=== PATIENT | male | born 1950 | race Caucasian/White ===

== ENCOUNTER 2021-08-28 16:56 | Inpatient (IN) ==
[2021-08-28] MEDS ORDERED: IOPAMIDOL 100 ML BOTTLE IV ONE (16:57)
[2021-08-28] MEDS ORDERED: 0.9 % SODIUM CHLORIDE 1,000 ML IV ONE (17:30)
[2021-08-28 17:42] LABS: POC Calcium, Ionized 1.12 (1.16-1.32); POC Creatinine 0.8 (0.6-1.2); POC Potassium 3.8 (3.3-5.1)
[2021-08-28 18:02] LABS: Basophils # (Auto) 0.03 K/mcL (0.00-0.30); Basophils % (Auto) 0.3 % (0.0-2.0); Eosinophils # (Auto) 0.17 K/mcL (0.00-0.70); Eosinophils % (Auto) 1.6 % (0.0-7.0); Hematocrit 42.7 % (40.1-51.0); Hemoglobin 14.6 g/dL (13.7-17.5); Lymphocytes # (Auto) 1.17 K/mcL (1.50-4.80); Lymphocytes % (Auto) 11.2 % (15.5-49.0); Mean Cell Volume 90.3 fL (80.0-100.0); Mean Corpuscular HGB Conc 34.2 g/dL (31.0-36.0); Mean Platelet Volume 10.2 fL (7.4-10.4); Monocytes # (Auto) 1.06 K/mcL (0.10-0.90); Monocytes % (Auto) 10.2 % (1.0-12.0); Neutrophils % (Auto) 75.9 % (38.0-78.0); Platelet Count 225 K/mcL (140-440); RBC 4.73 M/mcL (4.63-6.08); Red Cell Distribution Width 13.2 % (11.5-14.5); WBC 10.4 K/mcL (4.5-11.0)
--- NOTE | 2021-08-28 18:04 | XRay Report ---
CLINICAL INFORMATION: Shortness of breath COMPARISON: None. TECHNIQUE: PA and Lateral views FINDINGS: The heart is mildly enlarged. Mediastinum and pulmonary vessels are normal. There is minor left basilar atelectasis noted. No effusions. Bones soft tissues normal. IMPRESSION: Mild cardiomegaly. Interpreted and Authenticated by: Dieter Chapman 08/28/21
--- NOTE | 2021-08-28 18:14 | Emergency Department Note ---
SOB HPI General Chief Complaint: Shortness of Breath/Dyspnea Stated Complaint: SOB Time Seen by Provider: 08/28/21 17:14 Source: patient Mode of arrival: wheelchair Limitations: no limitations History of Present Illness HPI Narrative: Narrative: Patient presents ED with complaints of worsening shortness of breath over the last 3 days. He states that he feels like he is not breathing properly. He went to [facility] and tested positive for COVID. While he was there he states that his oxygen saturations were in the low 80s but he was sent home. Patient dates when he got home his that he did not look good so they brought him here to the ED. Upon arrival patient was satting 86% on room air. Patient states that he has associated chills, body aches, diarrhea. He denies cardiac chest pain, heart palpitations, cough, sputum production, hemoptysis, melena, medic easier, dysuria, hematuria, urinary frequency, abdominal pain. Patient states that he does have sleep apnea. He has a history of hypertension and diabetes. Patient denies any other alleviating or aggravating factors. Related Data Home Medications Medication Instructions Recorded Confirmed ascorbic acid (vitamin C) 500 mg 500 mg PO QDAY 02/05/21 08/28/21 tablet aspirin 81 mg capsule 81 mg PO QDAY 02/05/21 08/28/21 [id number] 250 3 tab PO Q6H PRN Pain 02/05/21 08/28/21 mg-250 mg-65 mg tablet (Excedrin Extra Strength) cholecalciferol (vitamin D3) 125 125 mcg PO QDAY 02/05/21 08/28/21 mcg (5,000 unit) tablet (Vitamin D3) multivitamin 1 tab PO QDAY 02/05/21 08/28/21 potassium chloride 20 mEq 40 meq PO QAM HTN 02/05/21 08/28/21 tablet,extended release(part/cryst) (Klor-Con M) psyllium husk 3.4 gram/5.4 gram 1 tbsp PO QDAY 02/05/21 08/28/21 oral powder (Metamucil) Previous Rx's Medication Instructions Recorded blood-glucose meter (Glucocard #1 ea 01/25/19 Vital) Diabetic shoes and inserts #1 ea 02/24/19 metformin 500 mg tablet 1,000 mg PO BID diabetes #360 tabs 12/27/19 blood sugar diagnostic (Glucocard See Rx Instructions .Route 02/05/20 Expression) .COMPLEX #100 strips furosemide 80 mg tablet (Lasix) 40 mg PO QDAY HTN #90 tabs 10/16/20 simvastatin 40 mg tablet 40 mg PO QHS #90 tabs 10/16/20 allopurinol 300 mg tablet 300 mg PO QDAY GOUT #90 tabs 02/26/21 pioglitazone 15 mg tablet 15 mg PO QDAY #90 tabs 02/26/21 glipizide 10 mg tablet, extended 10 mg PO QDAY #90 tabs 04/25/21 release 24 hr tamsulosin 0.4 mg capsule 0.4 mg PO QPM #90 caps 05/05/21 carvedilol 12.5 mg tablet 12.5 mg PO BID #60 tabs 06/03/21 zolpidem 10 mg tablet (Ambien) 10 mg PO QHS PRN insomnia #30 tabs 06/19/21 liothyronine 25 mcg tablet 25 mcg PO .COMPLEX thyroid #90 06/23/21 tabs amlodipine 10 mg tablet 10 mg PO QDAY #90 tabs 07/24/21 gabapentin 300 mg capsule 1,200 mg PO BID #270 caps 07/24/21 amitriptyline 50 mg tablet 150 mg PO QHS #270 tabs 07/29/21 acetaminophen 300 mg-codeine 30 mg 1 tab PO Q6H #60 tabs 08/20/21 tablet levothyroxine 100 mcg tablet 100 mcg PO .COMPLEX #180 tabs 08/20/21 (Levoxyl) meloxicam 7.5 mg tablet 7.5 mg PO QDAY #90 tabs 08/20/21 olmesartan 40 mg tablet 40 mg PO QAM #90 tabs 08/20/21 albuterol sulfate 90 mcg/actuation 2 puff inhalation Q6H PRN 08/28/21 aerosol inhaler shortness of breath or wheezing #8.5 grams mouthwash See Rx Instructions .Route 08/28/21 .COMPLEX #240 mL nirmatrelvir 300 mg (150 mg x See Rx Instructions PO .COMPLEX 08/28/21 2)-ritonavir 100 mg tablet (EUA) #30 tabs (Paxlovid 300 mg () Allergies Allergy/AdvReac Type Severity Reaction Status Date / Time Penicillins [PENICILLINS] Allergy Mild Rash Verified 08/28/21 17:03 morphine [MORPHINE] AdvReac Mild Nausea/Vomi Verified 08/28/21 17:03 ting Review of Systems ROS ROS Narrative: Narrative: All systems ED: reviewed and negative except as stated. 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) Stage III chronic kidney disease (Chronic) Hyperglycemia due to type 2 diabetes mellitus (Chronic) Nocturia (Chronic) Hypothyroidism (Chronic) Lumbar back pain (Chronic) Depression (Chronic) Shoulder pain, right (Chronic) Obesity (Chronic) Chronic constipation (Chronic) External hemorrhoids (Chronic) Chest pain (Chronic) Pain in left hip (Chronic) Seasonal allergic rhinitis (Chronic) Visual changes (Chronic) Weight loss (Chronic) Wrist pain, right (Chronic) Knee pain (Chronic) Fatigue (Chronic) Rib pain (Chronic) Pedal edema (Chronic) Popliteal cyst (Chronic) Degenerative joint disease (Chronic) Muscle spasm (Chronic) Tension headache (Chronic) Stress (Chronic) Fluid retention (Chronic) Mixed hyperlipidemia (Acute) Encounter for medication monitoring (Acute) Hypertension, essential (Acute) Orthostatic hypotension (Acute) Sinusitis (Acute) Memory loss (Acute) Pain in left hip (Acute) Left shoulder pain (Acute) DJD of left shoulder (Chronic) Swelling of right foot (Acute) Skin lesion (Acute) Vertigo (Acute) Medical History Chest pain Chronic constipation Degenerative joint disease Depression Diabetic peripheral neuropathy DJD of left shoulder External hemorrhoids Fatigue Fluid retention Foot callus Hyperglycemia due to type 2 diabetes mellitus Hypothyroidism Knee pain Lumbar back pain Muscle spasm Nocturia Obesity Obstructive sleep apnea Pain in left hip Pain in left hip Pedal edema Popliteal cyst Rib pain Seasonal allergic rhinitis Shoulder pain, right Stage III chronic kidney disease Stress Sudden left hearing loss Tension headache Type 2 diabetes mellitus with chronic kidney disease Visual changes Weight loss Wrist pain, right Surgical History History of cardiac radiofrequency ablation (~2016) Radiofrequency Rhizotomy History of excision of lesion (~1993) Skin cancer on lower lip, removed. History of total right knee replacement (~2010) Family History Other No pertinent family history Social History Smoking Status: Never smoker Alcohol Intake Frequency: does not drink Substance Use: does not use Exam Narrative Narrative: Narrative: General Limitations: no limitations General appearance: Present alert ENT ENT: Present normal oropharynx and mucous membranes moist Chest Chest: Present normal inspection; Absent tenderness Respiratory Respiratory: Present respiratory distress, accessory muscle use and other (Hypoxia) Cardiovascular Cardiovascular: Present normal rhythm and tachycardia Adbominal Abdominal: Present soft; Absent tenderness Neurological Neurological: Present alert and oriented X3 Psychiatric Psychiatric: Present normal affect and normal mood Skin Skin: Present warm (WNL), intact and normal color Course Course Course Narrative: Patient was evaluated for shortness of breath. Patient tested positive for COVID-19. EKG was unremarkable. Chest x-ray obtained with image reviewed myself with no acute findings. Labs are unremarkable with a normal white cell count. Lactic acid was unremarkable. Renal function was intact. D-dimer was elevated so a CT of the chest obtained with image reviewed myself which is negative for PE but does show bilateral lower lobe infiltrates consistent with COVID-pneumonia. Patient required 2 L of oxygen via mask to maintain adequate oxygen saturation. He was on a mask because he is a mouth breather and did not take good breaths through his nose. Case was discussed with hospitalist who has agreed to admit the patient. Reevaluation(s) Reevaluation #1: Patient remains hemodynamically stable. No new complaints at this time Time: 18:01 Consultations Consultation #1: Case discussed with hospitalist, Dr. Beasley, who has agreed to admit the patient for acute respiratory failure secondary to COVID-pneumonia Time: 20:15 Vital Signs Vital signs: Vital Signs Temperature 98.3 F 08/28/21 17:01 Pulse Rate 108 H 08/28/21 17:01 Respiratory Rate 25 H 08/28/21 17:01 Blood Pressure 163/81 08/28/21 17:01 Pulse Oximetry (%) 86 L 08/28/21 17:01 Oxygen Delivery Method 08/28/21 17:01 Temperature 98.3 F 08/28/21 17:01 Pulse Rate 111 H 08/28/21 18:43 Respiratory Rate 25 H 08/28/21 17:01 Blood Pressure 140/86 08/28/21 18:46 Pulse Oximetry (%) 95 08/28/21 18:43 Oxygen Delivery Method 08/28/21 17:01 Oxygen Flow Rate (L/min) 2 08/28/21 17:48 MDM MDM Narrative Medical decision making narrative: Narrative: Differential Diagnosis Differential Diagnosis: Respiratory failure, COVID-19 infection Lab Data Result diagrams: 08/28/21 17:30 08/28/21 17:30 Labs: Lab Results 08/28/21 08/28/21 08/28/21 Range/Units 17:30 17:30 17:30 WBC 10.4 (4.5-11.0) K/mcL RBC 4.73 (4.63-6.08) M/mcL Hgb 14.6 (13.7-17.5) g/dL Hct 42.7 (40.1-51.0) % POC Hct (41-55) MCV 90.3 (80.0-100.0) fL MCH 30.9 (26.0-34.0) pg MCHC 34.2 (31.0-36.0) g/dL RDW 13.2 (11.5-14.5) % Plt Count 225 (140-440) K/mcL MPV 10.2 (7.4-10.4) fL Immature Gran % (Auto) 0.8 H (0.0-0.5) % Neut % (Auto) 75.9 (38.0-78.0) % Lymph % (Auto) 11.2 L (15.5-49.0) % [place] % (Auto) 10.2 (1.0-12.0) % Eos % (Auto) 1.6 (0.0-7.0) % Baso % (Auto) 0.3 (0.0-2.0) % Lymph # (Auto) 1.17 L (1.50-4.80) K/mcL [place] # (Auto) 1.06 H (0.10-0.90) K/mcL Eos # (Auto) 0.17 (0.00-0.70) K/mcL Baso # (Auto) 0.03 (0.00-0.30) K/mcL Immature Gran # 0.08 H (0.00-0.05) K/mcl Absolute Neutrophils 8.00 (1.80-8.00) K/mcL D-Dimer 0.55 H (0.27-0.50) ug/mL POC VBG pH (7.32-7.42) POC VBG pCO2 at Temp (41-51) POC VBG pO2 (25-40) POC VBG HCO3 (24-28) POC VBG Total CO2 (25-29) POC Venous O2 Sat (40-70) POC VBG Base Excess (-2-2) VBG Lactic Acid (0.5-2) POC Sodium (133-145) Sodium 136 (133-145) mmol/L POC Potassium (3.3-5.1) Potassium 3.8 (3.3-5.1) mmol/L POC Chloride (96-108) Chloride 99 (96-108) mmol/L Carbon Dioxide 26 (22-30) mmol/L POC Total CO2 (22-30) Anion Gap 11.0 (8.0-16.0) POC BUN (6-20) BUN 9 (8-23) mg/dL Creatinine 0.8 (0.7-1.2) mg/dL POC Creatinine (0.6-1.2) GFR Calculation 91 Glucose 105 (70-105) mg/dL POC Glucose (70-105) Calcium 9.1 (8.6-10.4) mg/dL POC WB Ioniz Calcium (1.16-1.32) Total Bilirubin 0.4 (0.1-1.0) mg/dL AST 14 (<40) U/L ALT 13 (<40) U/L Alkaline Phosphatase 163 H (39-117) U/L Total Protein 7.4 (5.9-8.4) gm/dL Albumin 4.0 (3.2-5.2) gm/dL Globulin 3.4 (2.2-3.7) gm/dL Albumin/Globulin Ratio 1.2 (1.0-2.3) 08/28/21 08/28/21 Range/Units 17:39 18:50 WBC (4.5-11.0) K/mcL RBC (4.63-6.08) M/mcL Hgb (13.7-17.5) g/dL Hct (40.1-51.0) % POC Hct 46.0 (41-55) MCV (80.0-100.0) fL MCH (26.0-34.0) pg MCHC (31.0-36.0) g/dL RDW (11.5-14.5) % Plt Count (140-440) K/mcL MPV (7.4-10.4) fL Immature Gran % (Auto) (0.0-0.5) % Neut % (Auto) (38.0-78.0) % Lymph % (Auto) (15.5-49.0) % [place] % (Auto) (1.0-12.0) % Eos % (Auto) (0.0-7.0) % Baso % (Auto) (0.0-2.0) % Lymph # (Auto) (1.50-4.80) K/mcL [place] # (Auto) (0.10-0.90) K/mcL Eos # (Auto) (0.00-0.70) K/mcL Baso # (Auto) (0.00-0.30) K/mcL Immature Gran # (0.00-0.05) K/mcl Absolute Neutrophils (1.80-8.00) K/mcL D-Dimer (0.27-0.50) ug/mL POC VBG pH 7.45 H (7.32-7.42) POC VBG pCO2 at Temp 40.2 L (41-51) POC VBG pO2 27 (25-40) POC VBG HCO3 27.9 (24-28) POC VBG Total CO2 29.0 (25-29) POC Venous O2 Sat 52.0 (40-70) POC VBG Base Excess 4.0 H* (-2-2) VBG Lactic Acid 1.6 (0.5-2) POC Sodium 139 (133-145) Sodium (133-145) mmol/L POC Potassium 3.8 (3.3-5.1) Potassium (3.3-5.1) mmol/L POC Chloride 100 (96-108) Chloride (96-108) mmol/L Carbon Dioxide (22-30) mmol/L POC Total CO2 27.0 (22-30) Anion Gap (8.0-16.0) POC BUN 10 (6-20) BUN (8-23) mg/dL Creatinine (0.7-1.2) mg/dL POC Creatinine 0.8 (0.6-1.2) GFR Calculation Glucose (70-105) mg/dL POC Glucose 108 H (70-105) Calcium (8.6-10.4) mg/dL POC WB Ioniz Calcium 1.12 L (1.16-1.32) Total Bilirubin (0.1-1.0) mg/dL AST (<40) U/L ALT (<40) U/L Alkaline Phosphatase (39-117) U/L Total Protein (5.9-8.4) gm/dL Albumin (3.2-5.2) gm/dL Globulin (2.2-3.7) gm/dL Albumin/Globulin Ratio (1.0-2.3) ED POC Tests ED POC Tests: PHILIP - Influenza A Negative PHILIP - Influenza B Negative PHILIP - SARS Antigen Positive Radiology Data Radiology results reviewed: Yes I reviewed the patient's radiology results. Radiology results narrative: Chest x-ray obtained with image reviewed myself, agree with radiologist interpretation CT of the chest obtained in July is reviewed myself is negative for PE but does show bilateral lower lobe infiltrates EKG Data EKG #1: EKG attestation: Yes I reviewed and interpreted this EKG. EKG shows normal: sinus rhythm Rate: tachycardia (111) Rhythm: NSR [place]/QRS: normal Heart block present: None ST segment elevation in: None ST segment depression in: None QTc: normal QRS morphology: Present normal Interpretation: no acute changes Core Measures AMI Core Measures Followed: Yes Discharge Plan Patient/Caregiver Discharge Instructions Pt seen by ORAL SURGERY PHYSICIAN/PA only: No Clinical Impression: Acute respiratory failure with hypoxia, Elevated d-dimer, Pneumonia due to 2019-nCoV Patient Disposition: Xfer As Inpt ([facility]) Condition: Fair Follow up with: Jane Benavidez ARNP [Primary Care Provider] - Prescriptions: No Action (DME) blood-glucose meter [Glucocard Vital] Kit See Rx Instructions .ROUTE .MEDSUPPLY Qty: 1 0RF Rx Instructions: TESTING bid metformin 500 mg tablet 1,000 mg PO BID Qty: 360 4RF Rx Instructions: increase to 4pills/day (DME) Diabetic shoes and inserts Qty: 1 0RF Rx Instructions: As directed blood sugar diagnostic [Glucocard Expression] Strip See Rx Instructions .ROUTE .COMPLEX Qty: 100 11RF Dose Instruction: USE TO test BLOOD SUGAR(S) TWICE DAILY Rx Instructions: USE TO test BLOOD SUGAR(S) TWICE DAILY glipizide 10 mg tablet extended release 24hr 10 mg PO QDAY Qty: 90 3RF tamsulosin 0.4 mg capsule 0.4 mg PO QPM Qty: 90 4RF zolpidem [Ambien] 10 mg tablet 10 mg PO QHS PRN (Reason: insomnia) Qty: 30 3RF Rx Instructions: pickup liothyronine 25 mcg tablet 25 mcg PO .COMPLEX Qty: 90 6RF Rx Instructions: 25 mcg PO 1/2 M, W & , take 1 daily the other days of the week ; amlodipine 10 mg tablet 10 mg PO QDAY Qty: 90 3RF gabapentin 300 mg capsule 1,200 mg PO BID Qty: 270 6RF amitriptyline 50 mg tablet 50 mg tablet 150 mg PO QHS Qty: 270 2RF Rx Instructions: increased dose 01/11/19/ mouthwash See Rx Instructions .ROUTE .COMPLEX Qty: 240 0RF Rx Instructions: Mix 30mg Lidocaine, 60mg Benadryl, and 60mg Mylanta Swish 4 times daily and then swallow; albuterol sulfate 90 mcg/actuation HFA aerosol inhaler 2 puff inhalation Q6H PRN (Reason: shortness of breath or wheezing) Qty: 8.5 0RF Paxlovid (EUA) 300 mg (150 mg x 2)-100 mg tablet See Rx Instructions PO .COMPLEX Qty: 30 0RF Rx Instructions: take TWO 150 mg tablets of nirmatrelvir with ONE 100 mg tablet of ritonavir twice daily for 5 days do not take simvastatin and tamsulosin furosemide [Lasix] 80 mg tablet 40 mg PO QDAY Qty: 90 5RF simvastatin 40 mg tablet 40 mg PO QHS Qty: 90 3RF allopurinol 300 mg tablet 300 mg PO QDAY Qty: 90 4RF pioglitazone 15 mg tablet 15 mg PO QDAY Qty: 90 2RF levothyroxine [Levoxyl] 100 mcg tablet 100 mcg PO .COMPLEX Qty: 180 4RF Rx Instructions: 100 mcg PO 1 on M, W, F, Sun, 2 pills daily on wednesday and meloxicam 7.5 mg tablet 7.5 mg PO QDAY Qty: 90 0RF olmesartan 40 mg tablet 40 mg PO QAM Qty: 90 4RF acetaminophen-codeine 300-30 mg tablet 1 tab PO Q6H Qty: 60 2RF Rx Instructions: last 30 days carvedilol 12.5 mg tablet 12.5 mg PO BID Qty: 60 3RF Rx Instructions: must administer with a meal/food multivitamin Tablet 1 tab PO QDAY ascorbic acid (vitamin C) 500 mg Tablet 500 mg PO QDAY Excedrin Extra Strength 250-250-65 mg Tablet 3 tab PO Q6H PRN (Reason: Pain) cholecalciferol (vitamin D3) [Vitamin D3] 125 mcg (5,000 unit) Tablet 125 mcg PO QDAY Metamucil 3.4 gram/5.4 gram Powder 1 tbsp PO QDAY Rx Instructions: mix into at least 8 oz of water or juice before administering aspirin 81 mg Capsule 81 mg PO QDAY potassium chloride [Klor-Con M20] 20 mEq tablet,ER particles/crystals 40 meq PO QAM
[2021-08-28 18:29] LABS: ALT/SGPT 13 U/L (<40); AST/SGOT 14 U/L (<40); Albumin/Globulin Ratio 1.2 (1.0-2.3); Alkaline Phosphatase 163 U/L (39-117); Bilirubin,Total 0.4 mg/dL (0.1-1.0); Blood Urea Nitrogen 9 mg/dL (8-23); Calcium 9.1 mg/dL (8.6-10.4); Carbon Dioxide 26 mmol/L (22-30); Chloride 99 mmol/L (96-108); Globulin 3.4 gm/dL (2.2-3.7); Glomerular Filtration Rate 91; Glucose 105 mg/dL (70-105)
[2021-08-28] MEDS ORDERED: KETOROLAC 30 MG/ML VIAL IV ONE (20:06)
[2021-08-28] MEDS ORDERED: ACETAMINOPHEN 325 MG TABLET PO ONE (20:06)
[2021-08-28] MEDS ORDERED: DEXAMETHASONE 10 MG/ML VIAL IV ONE ×3 (20:29→20:51)
--- NOTE | 2021-08-28 20:29 | Internal Med History&Physical ---
HPI History of Present Illness Patient information: Note initiated : 08/28/21 at 8:25 pm Service Date, if different from initiated Date: [] Patient: Paul Dawson 71 y/o M admitted on for Shortness of breath. Chief Complaint: [] History of present illness: Mr. Dawson is a 71 year old M Patient presents the ED with increasing shortness of breath and cough. Patient developed sore throat on Wednesday while he was in [place]. He came back and had increasing shortness of breath and dry cough. This morning it became worse and so he went to [facility] and got a COVID test that was positive and he was given a prescription for Paxil of it. Patient states his oxygen saturations were low, in the 80s and when he got home his said he did not look good so he went back to the ED. In the ER is 86% on room air. Patient complained of chills body aches and diarrhea and headaches. No chest pain. Patient is vaccinated against COVID as well as the booster. Influenza screen AMB were negative in the ED. CTA of the chest showing bilateral lower lobe infiltrates. Review of Systems: Positives as above. Denies fever/nausea/vomiting/chest or abdominal pain. 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) Stage III chronic kidney disease (Chronic) Hyperglycemia due to type 2 diabetes mellitus (Chronic) Nocturia (Chronic) Hypothyroidism (Chronic) Lumbar back pain (Chronic) Depression (Chronic) Shoulder pain, right (Chronic) Obesity (Chronic) Chronic constipation (Chronic) External hemorrhoids (Chronic) Chest pain (Chronic) Pain in left hip (Chronic) Seasonal allergic rhinitis (Chronic) Visual changes (Chronic) Weight loss (Chronic) Wrist pain, right (Chronic) Knee pain (Chronic) Fatigue (Chronic) Rib pain (Chronic) Pedal edema (Chronic) Popliteal cyst (Chronic) Degenerative joint disease (Chronic) Muscle spasm (Chronic) Tension headache (Chronic) Stress (Chronic) Fluid retention (Chronic) Mixed hyperlipidemia (Acute) Encounter for medication monitoring (Acute) Hypertension, essential (Acute) Orthostatic hypotension (Acute) Sinusitis (Acute) Memory loss (Acute) Pain in left hip (Acute) Left shoulder pain (Acute) DJD of left shoulder (Chronic) Swelling of right foot (Acute) Skin lesion (Acute) Vertigo (Acute) Medical History Chest pain Chronic constipation Degenerative joint disease Depression Diabetic peripheral neuropathy DJD of left shoulder External hemorrhoids Fatigue Fluid retention Foot callus Hyperglycemia due to type 2 diabetes mellitus Hypothyroidism Knee pain Lumbar back pain Muscle spasm Nocturia Obesity Obstructive sleep apnea Pain in left hip Pain in left hip Pedal edema Popliteal cyst Rib pain Seasonal allergic rhinitis Shoulder pain, right Stage III chronic kidney disease Stress Sudden left hearing loss Tension headache Type 2 diabetes mellitus with chronic kidney disease Visual changes Weight loss Wrist pain, right Surgical History History of cardiac radiofrequency ablation (~2016) Radiofrequency Rhizotomy History of excision of lesion (~1993) Skin cancer on lower lip, removed. History of total right knee replacement (~2010) Family History Other No pertinent family history Social History marital status: occupational status: disabled alcohol intake frequency: does not drink substance use type: does not use MEDS/ALLERGIES Home Medications and Allergies Home Medications Medication Instructions Recorded Confirmed Type blood-glucose meter (Glucocard #1 ea 01/25/19 08/28/21 Rx Vital) Diabetic shoes and inserts #1 ea 02/24/19 08/28/21 Rx metformin 500 mg tablet 1,000 mg PO BID diabetes #360 tabs 12/27/19 08/28/21 Rx blood sugar diagnostic (Glucocard See Rx Instructions .Route 02/05/20 08/28/21 Rx Expression) .COMPLEX #100 strips furosemide 80 mg tablet (Lasix) 40 mg PO QDAY HTN #90 tabs 10/16/20 08/28/21 Rx simvastatin 40 mg tablet 40 mg PO QHS #90 tabs 10/16/20 08/28/21 Rx ascorbic acid (vitamin C) 500 mg 500 mg PO QDAY 02/05/21 08/28/21 History tablet aspirin 81 mg capsule 81 mg PO QDAY 02/05/21 08/28/21 History wpdfwsx-laeyaivihyajv-bqesgmod 250 3 tab PO Q6H PRN Pain 02/05/21 08/28/21 History mg-250 mg-65 mg tablet (Excedrin Extra Strength) cholecalciferol (vitamin D3) 125 125 mcg PO QDAY 02/05/21 08/28/21 History mcg (5,000 unit) tablet (Vitamin D3) multivitamin 1 tab PO QDAY 02/05/21 08/28/21 History potassium chloride 20 mEq 40 meq PO QAM HTN 02/05/21 08/28/21 History tablet,extended release(part/cryst) (Klor-Con M) psyllium husk 3.4 gram/5.4 gram 1 tbsp PO QDAY 02/05/21 08/28/21 History oral powder (Metamucil) allopurinol 300 mg tablet 300 mg PO QDAY GOUT #90 tabs 02/26/21 08/28/21 Rx pioglitazone 15 mg tablet 15 mg PO QDAY #90 tabs 02/26/21 08/28/21 Rx glipizide 10 mg tablet, extended 10 mg PO QDAY #90 tabs 04/25/21 08/28/21 Rx release 24 hr tamsulosin 0.4 mg capsule 0.4 mg PO QPM #90 caps 05/05/21 08/28/21 Rx carvedilol 12.5 mg tablet 12.5 mg PO BID #60 tabs 06/03/21 08/28/21 Rx zolpidem 10 mg tablet (Ambien) 10 mg PO QHS PRN insomnia #30 tabs 06/19/21 08/28/21 Rx liothyronine 25 mcg tablet 25 mcg PO .COMPLEX thyroid #90 06/23/21 08/28/21 Rx tabs amlodipine 10 mg tablet 10 mg PO QDAY #90 tabs 07/24/21 08/28/21 Rx gabapentin 300 mg capsule 1,200 mg PO BID #270 caps 07/24/21 08/28/21 Rx amitriptyline 50 mg tablet 150 mg PO QHS #270 tabs 07/29/21 08/28/21 Rx acetaminophen 300 mg-codeine 30 mg 1 tab PO Q6H #60 tabs 08/20/21 08/28/21 Rx tablet levothyroxine 100 mcg tablet 100 mcg PO .COMPLEX #180 tabs 08/20/21 08/28/21 Rx (Levoxyl) meloxicam 7.5 mg tablet 7.5 mg PO QDAY #90 tabs 08/20/21 08/28/21 Rx albuterol sulfate 90 mcg/actuation 2 puff inhalation Q6H PRN 08/28/21 08/28/21 Rx aerosol inhaler shortness of breath or wheezing #8.5 grams mouthwash See Rx Instructions .Route 08/28/21 08/28/21 Rx .COMPLEX #240 mL nirmatrelvir 300 mg (150 mg x See Rx Instructions PO .COMPLEX 08/28/21 08/28/21 Rx 2)-ritonavir 100 mg tablet (EUA) #30 tabs (Paxlovid 300 mg () olmesartan 40 mg tablet 80 mg PO QAM 08/28/21 08/28/21 History Allergies Allergy/AdvReac Type Severity Reaction Status Date / Time Penicillins [PENICILLINS] Allergy Mild Rash Verified 08/28/21 17:03 morphine [MORPHINE] AdvReac Mild Nausea/Vomi Verified 08/28/21 17:03 ting EXAM Constitutional Vitals: Temp Pulse Resp BP Pulse Ox O2 Del Method O2 Flow Rate 98.3 F 111 H 25 H 140/86 95 2 08/28/21 17:01 08/28/21 18:43 08/28/21 17:01 08/28/21 18:46 08/28/21 18:43 08/28/21 17:01 08/28/21 17:48 Exam: General: Alert, Awake, No acute Distress, obese Eyes/N/T: EOMI, PERRL, MM Head/Neck: neck supple, normocephalic atraumatic CV: RRR, No murmurs, normal s1/s2 Pulm: Mildly diminished b/l, no wheezing Abd: soft, nontender, +BS x4 Ext: no clubbing/cyanosis/edema Neuro: Alert, no focal deficits, moves all extremities, CN 2-12 grossly intact, symmetrical strength b/l upper/lower, sensations intact b/l upper/lower Skin: warm/dry DATA Data Completed and Pending Labs: Labs from last 24 hours 08/28/21 08/28/21 08/28/21 20:11 20:10 18:50 WBC RBC Hgb Hct POC Hct MCV MCH MCHC RDW Plt Count MPV Immature Gran % (Auto) Neut % (Auto) Lymph % (Auto) Cass % (Auto) Eos % (Auto) Baso % (Auto) Lymph # (Auto) Cass # (Auto) Eos # (Auto) Baso # (Auto) Immature Gran # Absolute Neutrophils D-Dimer POC VBG pH 7.45 H POC VBG pCO2 at Temp 40.2 L POC VBG pO2 27 POC VBG HCO3 27.9 POC VBG Total CO2 29.0 POC Venous O2 Sat 52.0 POC VBG Base Excess 4.0 H* VBG Lactic Acid 1.6 POC Sodium Sodium POC Potassium Potassium POC Chloride Chloride Carbon Dioxide POC Total CO2 Anion Gap POC BUN BUN Creatinine POC Creatinine GFR Calculation Glucose POC Glucose Calcium POC WB Ioniz Calcium Ferritin Pending Total Bilirubin AST ALT Alkaline Phosphatase C-Reactive Protein Pending Total Protein Albumin Globulin Albumin/Globulin Ratio Procalcitonin Pending 08/28/21 08/28/21 08/28/21 17:39 17:30 17:30 WBC 10.4 RBC 4.73 Hgb 14.6 Hct 42.7 POC Hct 46.0 MCV 90.3 MCH 30.9 MCHC 34.2 RDW 13.2 Plt Count 225 MPV 10.2 Immature Gran % (Auto) 0.8 H Neut % (Auto) 75.9 Lymph % (Auto) 11.2 L Cass % (Auto) 10.2 Eos % (Auto) 1.6 Baso % (Auto) 0.3 Lymph # (Auto) 1.17 L Cass # (Auto) 1.06 H Eos # (Auto) 0.17 Baso # (Auto) 0.03 Immature Gran # 0.08 H Absolute Neutrophils 8.00 D-Dimer 0.55 H POC VBG pH POC VBG pCO2 at Temp POC VBG pO2 POC VBG HCO3 POC VBG Total CO2 POC Venous O2 Sat POC VBG Base Excess VBG Lactic Acid POC Sodium 139 Sodium POC Potassium 3.8 Potassium POC Chloride 100 Chloride Carbon Dioxide POC Total CO2 27.0 Anion Gap POC BUN 10 BUN Creatinine POC Creatinine 0.8 GFR Calculation Glucose POC Glucose 108 H Calcium POC WB Ioniz Calcium 1.12 L Ferritin Total Bilirubin AST ALT Alkaline Phosphatase C-Reactive Protein Total Protein Albumin Globulin Albumin/Globulin Ratio Procalcitonin 08/28/21 17:30 WBC RBC Hgb Hct POC Hct MCV MCH MCHC RDW Plt Count MPV Immature Gran % (Auto) Neut % (Auto) Lymph % (Auto) Cass % (Auto) Eos % (Auto) Baso % (Auto) Lymph # (Auto) Cass # (Auto) Eos # (Auto) Baso # (Auto) Immature Gran # Absolute Neutrophils D-Dimer POC VBG pH POC VBG pCO2 at Temp POC VBG pO2 POC VBG HCO3 POC VBG Total CO2 POC Venous O2 Sat POC VBG Base Excess VBG Lactic Acid POC Sodium Sodium 136 POC Potassium Potassium 3.8 POC Chloride Chloride 99 Carbon Dioxide 26 POC Total CO2 Anion Gap 11.0 POC BUN BUN 9 Creatinine 0.8 POC Creatinine GFR Calculation 91 Glucose 105 POC Glucose Calcium 9.1 POC WB Ioniz Calcium Ferritin Total Bilirubin 0.4 AST 14 ALT 13 Alkaline Phosphatase 163 H C-Reactive Protein Total Protein 7.4 Albumin 4.0 Globulin 3.4 Albumin/Globulin Ratio 1.2 Procalcitonin A/P Narrative A/P Narrative: A: *Acute hypoxic respiratory failure: 2/2 Pneumonia -CT chest with bibasilar infiltrate *COVID (+), ?PNA: * *DM w/neuropathy: *Morbid Obesity: BMI 48 *YOEL with CPAP: *Hypothyroidism: *CKD: *Depression: *HTN/HLD: * P: -Dex/Rem/Actemra -O2 supp and wean as able -Abx, pending SC -nebs, RT, IS/Acapella -Proning/mobilization/OOB to chair -monitor inflammatory markers - -cont home Norvasc/ARB/BB -cont lasix -SSI -Home medication reconciliation -PT/OT -ppx: lovenox / H2 DNR Time Spent With Patient Time: Total time spent is greater than 50% in coordination of care (as documented) at patient's floor/unit and/or counseling patient: Total time spent with greater than 50% in coordination of care (as documented) at patient's floor/unit and/or counseling patient:: Greater than 70 minutes
[2021-08-28 20:51] LABS: C-Reactive Protein 4.9 mg/dL (0.03-0.80)
[2021-08-28] MEDS ORDERED: GABAPENTIN 300 MG PO SCH (21:00)
[2021-08-28] MEDS ORDERED: AMITRIPTYLINE 50 MG PO SCH (21:00)
[2021-08-28] MEDS ORDERED: POTASSIUM CHLORIDE 40 MEQ in DEXTROSE 5% IN WATER 500 ML IV PRN (21:32)
[2021-08-28] MEDS ORDERED: ONDANSETRON 4 MG/2 ML VIAL IV PRN (21:32)
[2021-08-28] MEDS ORDERED: POTASSIUM CHLORIDE 20 MEQ TABLET PO PRN ×2 (21:32)
[2021-08-28] MEDS ORDERED: REMDESIVIR 200 MG in 0.9 % SODIUM CHLORIDE 250 ML IV ONE (21:32)
[2021-08-28] MEDS ORDERED: REMDESIVIR 100 MG in 0.9 % SODIUM CHLORIDE 250 ML IV SCH (21:32)
[2021-08-28] MEDS ORDERED: MAGNESIUM SULFATE 2 GM/50 ML BAG IV PRN (21:32)
[2021-08-28] MEDS ORDERED: TOCILIZUMAB 800 MG in 0.9 % SODIUM CHLORIDE 60 ML IV ONE (21:32)
[2021-08-28] MEDS ORDERED: SENNOSIDES 1 TABLET PO PRN (21:32)
[2021-08-28] MEDS ORDERED: DEXTROSE 31 GM ORAL.SUSP PO PRN (21:32)
[2021-08-28] MEDS ORDERED: ACETAMINOPHEN 325 MG TABLET PO PRN (21:32)
[2021-08-28] MEDS ORDERED: POLYETHYLENE GLYCOL 3350 17 GM PACKET PO PRN (21:32)
[2021-08-28] MEDS ORDERED: IPRATROPIUM/ALBUTEROL 3 ML AMPUL.NEB NEB PRN (21:32)
[2021-08-28] MEDS ORDERED: DEXTROSE 50% 50 ML VIAL IV PRN (21:32)
[2021-08-28] MEDS ORDERED: AMITRIPTYLINE 25 MG TABLET PO ONE (22:52)
[2021-08-28] MEDS ORDERED: GABAPENTIN 300 MG CAPSULE PO ONE (22:53)
[2021-08-28] MEDS: cefTRIAXone 2 GM in DEXTROSE 5% IN WATER 50 ML IV SCH (23:29)
[2021-08-28] MEDS: FAMOTIDINE 20 MG TABLET PO SCH (23:29)
[2021-08-28] MEDS: ENOXAPARIN 40 MG/0.4 ML SYRINGE SQ SCH (23:30)
[2021-08-28] MEDS ORDERED: cefTRIAXone 2 GM VIAL ONE (23:35)
[2021-08-28] MEDS: DOCUSATE SODIUM 100 MG CAPSULE PO SCH (23:36)
[2021-08-28] MEDS: 0.9 % SODIUM CHLORIDE 10 ML SYRINGE IV SCH (23:37)
[2021-08-28] MEDS: INSULIN LISPRO 1 UNIT/0.01 ML UNIT SQ SCH (23:37)
[2021-08-29] MEDS: AZITHROMYCIN 500 MG in DEXTROSE 5% IN WATER 250 ML IV SCH ×2 (01:04→16:43)
[2021-08-29] MEDS: LABETALOL 5 MG/ML ML IV PRN ×3 (01:45→22:17)
--- NOTE | 2021-08-29 02:01 | Cat Scan Report ---
CLINICAL INFORMATION: Shortness of breath and elevated d-dimer COMPARISON: None. TECHNIQUE: 80ml of Isovue-370 were injected intravenously. Using SmartPrep to maximize pulmonary artery opacification, .625mm helical slices were obtained from the lung apices through the lung bases. Following reconstruction, 2.5 mm sagittal, coronal, and axial reformations were processed. The exam was reviewed at mediastinal, lung, and bone windows. The exam was performed using radiation dose optimization techniques including, but not limited to, automated exposure control, adjustment of the mA and/or kV according to patient size and use of iterative reconstruction technique. FINDINGS: Pulmonary parenchymal windows complete atelectasis of the medial basilar segments both lower lobes and subsegmental atelectasis in the posterior basilar segments. Remaining lungs are clear.. Pleural spaces are unremarkable-no effusions. Mediastinal windows show the heart is grossly normal in size and configuration. There is only minimal scattered plaque in the opacified coronary arteries. The pulmonary arteries are normal diameter and suboptimally-no evidence of embolus. Thoracic aorta is also normal diameter and well-opacified. There is no adenopathy in the mediastinal, hilar or axillary regions. Esophagus is grossly normal. The thyroid is unremarkable. Bones and soft tissues the chest wall are normal. Images through the superior abdomen are show moderate pancreatic atrophy. IMPRESSION: 1. No evidence of pulmonary embolus. 2. Atelectasis medial basilar segment of both lower lobe subsegmental atelectasis the posterior basilar segments. 3. Moderate pancreatic atrophy Interpreted and Authenticated by: Dieter Chapman 08/29/21
[2021-08-29] MEDS: 0.9 % SODIUM CHLORIDE 10 ML SYRINGE IV SCH ×4 (06:21→22:17)
[2021-08-29 06:44] LABS: Hematocrit 42.3 % (40.1-51.0); Hemoglobin 14.1 g/dL (13.7-17.5); Mean Cell Volume 91.2 fL (80.0-100.0); Mean Corpuscular HGB Conc 33.3 g/dL (31.0-36.0); Mean Platelet Volume 10.5 fL (7.4-10.4); Platelet Count 218 K/mcL (140-440); RBC 4.64 M/mcL (4.63-6.08); Red Cell Distribution Width 13.2 % (11.5-14.5); WBC 9.6 K/mcL (4.5-11.0)
[2021-08-29 07:22] LABS: ALT/SGPT 11 U/L (<40); AST/SGOT 12 U/L (<40); Albumin 3.6 gm/dL (3.2-5.2); Albumin/Globulin Ratio 1.1 (1.0-2.3); Alkaline Phosphatase 144 U/L (39-117); Bilirubin,Direct < 0.2 mg/dL (0-0.3); Bilirubin,Total 0.2 mg/dL (0.1-1.0); Blood Urea Nitrogen 10 mg/dL (8-23); Calcium 8.8 mg/dL (8.6-10.4); Carbon Dioxide 23 mmol/L (22-30); Chloride 102 mmol/L (96-108); Globulin 3.4 gm/dL (2.2-3.7); Glomerular Filtration Rate 91; Glucose 181 mg/dL (70-105); Lactate Dehydrogenase 189 U/L (135-225); Phosphorous 3.5 mg/dL (2.5-4.5); Triglycerides 59 mg/dL (<150); Uric Acid 5.2 mg/dL (2.5-8.0)
[2021-08-29] MEDS ORDERED: LEVOTHYROXINE 100 MCG TABLET PO SCH (07:30)
[2021-08-29] MEDS: INSULIN LISPRO 1 UNIT/0.01 ML UNIT SQ SCH ×4 (07:50→21:23)
[2021-08-29] MEDS: metFORMIN 500 MG TABLET PO SCH ×3 (07:53→17:05)
[2021-08-29] MEDS: glipiZIDE 5 MG TAB.XL.24H PO SCH (07:53)
--- NOTE | 2021-08-29 07:53 | Internal Med Progress Note ---
SUBJECTIVE Subjective Patient information: Note initiated : 08/29/21 at 7:48 am Service Date, if different from initiated Date: [] Patient: Paul Dawson 71 y/o M admitted on 08/28/21 for Shortness of breath. Chief Complaint: [] Interval history: History of present illness: Mr. Dawson is a 71 year old M Patient presents the ED with increasing shortness of breath and cough. Patient developed sore throat on Wednesday while he was in [place]. He came back Wednesday and had increasing shortness of breath and dry cough. This morning it became worse and so he went to [facility] and got a COVID test that was positive and he was given a prescription for Paxil of it. Patient states his oxygen saturations were low, in the 80s and when he got home his said he did not look good so he went back to the ED. In the ER is 86% on room air. Patient complained of chills body aches and diarrhea and headaches. No chest pain. Patient is vaccinated against COVID as well as the booster. Influenza screen AMB were negative in the ED. CTA of the chest showing bilateral lower lobe infiltrates. 08/29 Patient has continued cough mostly dry. He says his shortness of breath is little better. Patient is on 4 L nasal cannula when I arrived in the room. CRP elevated Review of Systems: denies headache/fever/chills/nausea/vomiting/chest or abdominal pain/diarrhea. Otherwise see above. Constitutional Vitals: Vital Signs Temp Pulse Resp BP Pulse Ox O2 Del Method O2 Flow Rate 97.3 F 90 13 160/106 97 5 08/29/21 04:01 08/29/21 06:32 08/29/21 06:32 08/29/21 06:02 08/29/21 06:32 08/29/21 01:49 08/29/21 04:01 Period Temp Pulse Resp BP Sys/Lugo Pulse Ox O2 Del Method O2 Flow Rate Last 24 Hr 97.2 F-99.3 F 85-123 12-25 126-177/78-112 86-97 CPAP-Room Air 2-5 Intake and Output 08/28/21 08/29/21 08/29/21 21:59 05:59 13:59 Intake Total 1000 790 Balance 1000 790 Weight 160.481 kg Intake & Output: Intake & Output 07/21/22 07/22/22 07/22/22 21:59 05:59 13:59 Intake Total 1000 790 Balance 1000 790 Weight 160.481 kg Intake: IV 1000 550 Sodium Chloride 0.9% 1,000 ml @ 1000 Wide Open IV BOLUS ONE Rx#: [id number] Zithromax 500 mg In Dextrose 5% 250 in Water 250 ml @ 250 mls/hr IV Q24H [facility] Rx#:[id number] Veklury 200 mg In Sodium 250 Chloride 0.9% 250 ml @ 500 mls/ hr IV ONCE ONE Rx#:[id number] Rocephin 2 gm In Dextrose 5% in 50 Water 50 ml @ 100 mls/hr IV Q24H [facility] Rx#:[id number] Oral 240 Exam: General: Alert, Awake, No acute Distress, obese Eyes/N/T: EOMI, Head/Neck: neck supple, CV: RRR, No murmurs, Pulm: Mildly diminished b/l, no wheezing Abd: soft, nontender, +BS x4 Ext: no clubbing/cyanosis, 1+ b/l LE edema Neuro: Alert, no focal deficits, moves all extremities, Skin: warm/dry OBJ DATA Labs CBC & Chem 7: 08/29/21 05:55 08/29/21 05:55 Labs: Abnormal Lab Results 08/29/21 08/29/21 08/28/21 05:55 05:55 20:10 MPV 10.5 H Immature Gran % (Auto) Lymph % (Auto) Lymph # (Auto) Ocean # (Auto) Immature Gran # D-Dimer POC VBG pH POC VBG pCO2 at Temp POC VBG Base Excess Glucose 181 H POC Glucose POC WB Ioniz Calcium Alkaline Phosphatase 144 H C-Reactive Protein 9.50 H 4.90 H 08/28/21 08/28/21 08/28/21 18:50 17:39 17:30 MPV Immature Gran % (Auto) Lymph % (Auto) Lymph # (Auto) Ocean # (Auto) Immature Gran # D-Dimer 0.55 H POC VBG pH 7.45 H POC VBG pCO2 at Temp 40.2 L POC VBG Base Excess 4.0 H* Glucose POC Glucose 108 H POC WB Ioniz Calcium 1.12 L Alkaline Phosphatase C-Reactive Protein 08/28/21 08/28/21 17:30 17:30 MPV Immature Gran % (Auto) 0.8 H Lymph % (Auto) 11.2 L Lymph # (Auto) 1.17 L Ocean # (Auto) 1.06 H Immature Gran # 0.08 H D-Dimer POC VBG pH POC VBG pCO2 at Temp POC VBG Base Excess Glucose POC Glucose POC WB Ioniz Calcium Alkaline Phosphatase 163 H C-Reactive Protein Meds: Medications Acetaminophen (Acetaminophen 325 Mg Tablet) 650 mg PO Q6HP PRN; Protocol PRN Reason: Per Pain Protocol/Fever > 101 Albuterol/Ipratropium (Ipratropium/Albuterol 3 Ml Ampul.Neb) 3 ml NEB Q4HP PRN PRN Reason: Shortness Of Breath Allopurinol (Allopurinol 300 Mg Tablet) 300 mg PO QDAY [facility] Amitriptyline HCl (Amitriptyline 25 Mg Tablet) 150 mg PO HS [facility]I Aspirin (Aspirin 81 Mg Tab.Chew) 81 mg PO DAILY [facility] Carvedilol (Carvedilol 12.5 Mg Tablet) 25 mg PO DAILY [facility] Dexamethasone (Dexamethasone 4 Mg Tablet) 6 mg PO DAILY [facility] Dextrose (Dextrose 50% 50 Ml Vial) 0 ml IV UD PRN PRN Reason: Per Sliding Scale Diagnostic Test (Pha) (Accu-Chek 1 Each Strip) 1 each FS ACHS [facility] Last Admin: 08/29/21 07:19 Dose: 1 each Docusate Sodium (Docusate Sodium 100 Mg Capsule) 100 mg PO BID [facility] Last Admin: 08/28/21 23:36 Dose: Not Given Enoxaparin Sodium (Enoxaparin 40 Mg/0.4 Ml Syringe) 60 mg SQ BID [facility] Last Admin: 08/28/21 23:30 Dose: 60 mg Famotidine (Famotidine 20 Mg Tablet) 20 mg PO BID [facility] Last Admin: 08/28/21 23:29 Dose: 20 mg Furosemide (Furosemide 80 Mg Tablet) 40 mg PO QDAY [facility] Gabapentin (Gabapentin 300 Mg Capsule) 1,200 mg PO DAILY [facility] Glipizide (Glipizide 5 Mg Tab.Xl.24h) 10 mg PO QAMAC [facility] Glucose (Dextrose 31 Gm Oral.Susp) 15 gm PO PRN PRN PRN Reason: Hypoglycemia Ceftriaxone Sodium 2 gm/ (Dextrose) 50 mls @ 100 mls/hr IV Q24H [facility]; Protocol Last Infusion: 08/28/21 23:59 Dose: Infused Azithromycin 500 mg/ Dextrose 250 mls @ 250 mls/hr IV Q24H [facility]; Protocol Stop: 08/30/21 22:31 Last Infusion: 08/29/21 02:05 Dose: Infused Potassium Chloride 40 meq/ (Dextrose) 520 mls @ 130 mls/hr IV UD PRN PRN Reason: Potassium < 3 Magnesium Sulfate (Magnesium Sulfate) 2 gm in 50 mls @ 50 mls/hr IV UD PRN PRN Reason: Magnesium </= 1.6 REMDESIVIR 100 mg/ Sodium (Chloride) 250 mls @ 500 mls/hr IV Q24H [facility] Stop: 08/29/21 21:33 Last Admin: 08/28/21 22:45 Dose: Not Given TOCILIZUMAB 800 mg/ Sodium (Chloride) 100 mls @ 100 mls/hr IV ONCE ONE Stop: 08/29/21 08:59 Insulin Human Lispro (Insulin Lispro 1 Unit/0.01 Ml Unit) 0 unit SQ ACHS [facility]; Protocol Last Admin: 08/28/21 23:37 Dose: Not Given Labetalol HCl (Labetalol 5 Mg/Ml Ml) 0 mg IV Q2HP PRN PRN Reason: Hypertension Last Admin: 08/29/21 06:37 Dose: 10 mg Levothyroxine Sodium (Levothyroxine 100 Mcg Tablet) 100 mcg PO .COMPLEX [facility] Liothyronine Sodium (Liothyronine 5 Mcg Tablet) 12.5 mcg PO MoWeFr@0900 [facility] Liothyronine Sodium (Liothyronine 5 Mcg Tablet) 25 mcg PO SuTuThSa@0900 [facility] Metformin HCl (Metformin 500 Mg Tablet) 1,000 mg PO BIDCC [facility] Non-Formulary Medication (Gabapentin) 1,500 mg PO HS [facility]I Last Admin: 08/28/21 23:33 Dose: 1,500 mg Non-Formulary Medication (Olmesartan) 80 mg PO QAM [facility] Ondansetron HCl (Ondansetron 4 Mg/2 Ml Vial) 4 mg IV Q4HP PRN PRN Reason: Nausea And Vomiting Polyethylene Glycol (Polyethylene Glycol 3350 17 Gm Packet) 17 gm PO DAILYP PRN PRN Reason: Constipation Potassium Chloride (Potassium Chloride 20 Meq Tablet) 40 meq PO UD PRN PRN Reason: Potssium is 3-3.5 Potassium Chloride (Potassium Chloride 20 Meq Tablet) 40 meq PO UD PRN PRN Reason: Potassium < 3 Senna (Sennosides 1 Tablet) 2 tab PO DAILYP PRN PRN Reason: Constipation Simvastatin (Simvastatin 40 Mg Tablet) 40 mg PO QHS [facility] Sodium Chloride (0.9 % Sodium Chloride 10 Ml Syringe) 10 ml IV Q8 [facility] Last Admin: 08/29/21 06:21 Dose: 10 ml Tamsulosin HCl (Tamsulosin 0.4 Mg Capsule) 4 mg PO QPM [facility] Zolpidem Tartrate (Zolpidem 5 Mg Tablet) 10 mg PO HSP PRN PRN Reason: Insomnia A/P Narrative A/P Narrative: A: *Acute hypoxic respiratory failure: 2/2 Pneumonia -CT chest with bibasilar infiltrate -on 2-5L oxymask (pt a mouth breather) *COVID (+), ?PNA: *DM w/neuropathy: *Morbid Obesity: BMI 48 *YOEL with CPAP: *Hypothyroidism: *CKD: *Depression: *HTN/HLD: P: -Dex/Rem/Actemra -O2 supp and wean as able -Abx, pending SC -nebs, RT, IS/Acapella -Proning/mobilization/OOB to chair -monitor inflammatory markers -cont home Norvasc/ARB/BB -cont lasix -SSI -PT/OT -ppx: lovenox / H2 DNR Time Spent With Patient Time: Total time spent is greater than 50% in coordination of care (as documented) at patient's floor/unit and/or counseling patient: Total time spent with greater than 50% in coordination of care (as documented) at patient's floor/unit and/or counseling patient:: 35 - 50 minutes QUALITY VTE Deep Vein Thrombosis/Pulmonary Embolism Present on Admission: No
[2021-08-29] MEDS ORDERED: TOCILIZUMAB 800 MG in 0.9 % SODIUM CHLORIDE 60 ML IV ONE (08:00)
[2021-08-29] MEDS ORDERED: FUROSEMIDE 80 MG TABLET PO SCH (09:00)
[2021-08-29] MEDS ORDERED: GABAPENTIN 300 MG CAPSULE PO SCH ×2 (09:00→21:00)
[2021-08-29] MEDS ORDERED: LIOTHYRONINE 5 MCG TABLET PO SCH (09:00)
[2021-08-29 09:03] LABS: Lymphocytes % 7 % (15-49); Platelet Estimate NORMAL (Normal); RBC Morphology NORMAL (Normal); Reactive Lymphocytes 5 % (0-2); Segmented Neutrophils % 88 % (38-78)
[2021-08-29] MEDS ORDERED: FUROSEMIDE 40 MG/4 ML VIAL IV ONE (09:16)
[2021-08-29] MEDS: OLMESARTAN MEDOXOMIL 20 MG TABLET PO SCH (10:16)
[2021-08-29] MEDS: ASPIRIN 81 MG TAB.CHEW PO SCH (10:16)
[2021-08-29] MEDS: DOCUSATE SODIUM 100 MG CAPSULE PO SCH ×2 (10:16→21:26)
[2021-08-29] MEDS: GABAPENTIN 300 MG CAPSULE PO SCH ×2 (10:16→21:24)
[2021-08-29] MEDS: FAMOTIDINE 20 MG TABLET PO SCH ×2 (10:17→21:27)
[2021-08-29] MEDS: ALLOPURINOL 300 MG TABLET PO SCH (10:17)
[2021-08-29] MEDS: DEXAMETHASONE 4 MG TABLET PO SCH (10:17)
[2021-08-29] MEDS: ENOXAPARIN 40 MG/0.4 ML SYRINGE SQ SCH ×2 (10:29→21:25)
--- NOTE | 2021-08-29 10:29 | EKG ---
[facility] Test Date: 2021-08-28 Pat Name: Paul Dawson Department: ED Room: Gender: Male Review Specialist: : [id number] Requested By: Manuel Macias Order Number: [id number] Reading MD: Dieter Barraza M.D. Measurements Intervals [place] Rate: 111 P: 34 [place]: 182 QRS: 12 QRSD: 122 T: 37 QT: 334 QTc: 454 Interpretive Statements Sinus tachycardia Electronically Signed On 08-29-2021 10:28:41 PDT by Dieter Barraza M.D. /[id number]
[2021-08-29] MEDS: CARVEDILOL 12.5 MG TABLET PO SCH ×2 (10:48→17:05)
[2021-08-29] MEDS: cefTRIAXone 2 GM in DEXTROSE 5% IN WATER 50 ML IV SCH (14:47)
[2021-08-29] MEDS: [UNRECOGNIZED DRUG - OTHER] PO SCH ×3 (15:11→22:10)
[2021-08-29] MEDS: MAGIC MOUTHWASH PO SCH ×3 (15:11→22:10)
[2021-08-29] MEDS: REMDESIVIR 100 MG in 0.9 % SODIUM CHLORIDE 250 ML IV SCH (15:36)
[2021-08-29] MEDS ORDERED: AMITRIPTYLINE 25 MG TABLET PO SCH (21:00)
[2021-08-29] MEDS ORDERED: TAMSULOSIN 0.4 MG CAPSULE PO SCH (21:00)
[2021-08-29] MEDS ORDERED: SIMVASTATIN 40 MG TABLET PO SCH (21:00)
[2021-08-29] MEDS ORDERED: ZOLPIDEM 5 MG TABLET PO PRN (21:00)
[2021-08-29] MEDS: TAMSULOSIN 0.4 MG CAPSULE PO SCH ×2 (21:27→22:31)
[2021-08-30] MEDS: 0.9 % SODIUM CHLORIDE 10 ML SYRINGE IV SCH (05:20)
[2021-08-30 07:23] LABS: ALT/SGPT 11 U/L (<40); AST/SGOT 13 U/L (<40); Albumin 3.4 gm/dL (3.2-5.2); Alkaline Phosphatase 131 U/L (39-117); Bilirubin,Direct < 0.2 mg/dL (0-0.3); Bilirubin,Total 0.2 mg/dL (0.1-1.0); Blood Urea Nitrogen 15 mg/dL (8-23); Calcium 8.9 mg/dL (8.6-10.4); Carbon Dioxide 21 mmol/L (22-30); Chloride 102 mmol/L (96-108); Globulin 3.3 gm/dL (2.2-3.7); Glomerular Filtration Rate 91; Glucose 140 mg/dL (70-105); Lactate Dehydrogenase 202 U/L (135-225); Phosphorous 2.8 mg/dL (2.5-4.5); Triglycerides 66 mg/dL (<150); Uric Acid 4.5 mg/dL (2.5-8.0)
[2021-08-30] MEDS: metFORMIN 500 MG TABLET PO SCH (07:39)
[2021-08-30] MEDS: glipiZIDE 5 MG TAB.XL.24H PO SCH (07:39)
[2021-08-30] MEDS: INSULIN LISPRO 1 UNIT/0.01 ML UNIT SQ SCH ×2 (07:40→13:03)
[2021-08-30] MEDS: CARVEDILOL 12.5 MG TABLET PO SCH (07:40)
--- NOTE | 2021-08-30 08:00 | Internal Med Progress Note ---
SUBJECTIVE Subjective Patient information: Note initiated : 08/30/21 at 7:57 am Service Date, if different from initiated Date: [] Patient: Paul Dawson 71 y/o M admitted on 08/28/21 for Shortness of breath. Chief Complaint: [] Interval history: History of present illness: Mr. Dawson is a 71 year old M Patient presents the ED with increasing shortness of breath and cough. Patient developed sore throat on Wednesday while he was in [place]. He came back Wednesday and had increasing shortness of breath and dry cough. This morning it became worse and so he went to [facility] and got a COVID test that was positive and he was given a prescription for Paxil of it. Patient states his oxygen saturations were low, in the 80s and when he got home his said he did not look good so he went back to the ED. In the ER is 86% on room air. Patient complained of chills body aches and diarrhea and headaches. No chest pain. Patient is vaccinated against COVID as well as the booster. Influenza screen AMB were negative in the ED. CTA of the chest showing bilateral lower lobe infiltrates. 08/29 Patient has continued cough mostly dry. He says his shortness of breath is little better. Patient is on 4 L nasal cannula when I arrived in the room. CRP elevated 08/30 Patient doing well. Minimal cough. Shortness of breath much improved. Currently on room air. We will ambulate him and see how he does on room air. Review of Systems: denies headache/fever/chills/nausea/vomiting/chest or abdominal pain/diarrhea. Otherwise see above. Constitutional Vitals: Vital Signs Temp Pulse Resp BP Pulse Ox O2 Del Method O2 Flow Rate 98.4 F 88 22 156/96 95 0 08/30/21 00:01 08/30/21 06:01 08/30/21 06:01 08/30/21 06:01 08/30/21 06:01 08/30/21 02:15 08/30/21 06:01 Period Temp Pulse Resp BP Sys/Lugo Pulse Ox O2 Del Method O2 Flow Rate Last 24 Hr 96.8 F-98.4 F 80-95 12-26 114-159/72-101 93-98 Oxymask-Room Air 0-5 Intake and Output 08/29/21 08/30/21 08/30/21 21:59 05:59 13:59 Intake Total 1325 600 Output Total 1000 450 Balance 325 150 Weight 161.615 kg Intake & Output: Intake & Output 08/29/21 08/30/21 08/30/21 21:59 05:59 13:59 Intake Total 1325 600 Output Total 1000 450 Balance 325 150 Weight 161.615 kg Intake: IV 550 Zithromax 500 mg In Dextrose 5% 250 in Water 250 ml @ 250 mls/hr IV Q24H [facility] Rx#:[id number] Veklury 100 mg In Sodium 250 Chloride 0.9% 250 ml @ 500 mls/ hr IV DAILY [facility] Rx#:[id number] Rocephin 2 gm In Dextrose 5% in 50 Water 50 ml @ 100 mls/hr IV Q24H [facility] Rx#:[id number] Oral 775 600 Output: Void Amount 1000 450 Other: Urine Appearance Clear Clear Urine Color Bright Yellow Bright Yellow Exam: General: Alert, Awake, No acute Distress, obese Eyes/N/T: EOMI, Head/Neck: neck supple, CV: RRR, No murmurs, Pulm: Mildly diminished b/l but better aeration, no wheezing Abd: soft, nontender, +BS x4 Ext: no clubbing/cyanosis, 1+ b/l LE edema Neuro: Alert, no focal deficits, moves all extremities, Skin: warm/dry OBJ DATA Labs CBC & Chem 7: 08/29/21 05:55 08/30/21 05:08 Labs: Abnormal Lab Results 08/30/21 08/29/21 08/29/21 05:08 05:55 05:55 MPV 10.5 H Immature Gran % (Auto) Lymph % (Auto) Lymph # (Auto) [place] # (Auto) Seg Neutrophils % 88 H Lymphocytes % 7 L Immature Gran # Reactive Lymphocytes 5 H D-Dimer POC VBG pH POC VBG pCO2 at Temp POC VBG Base Excess Carbon Dioxide 21 L Glucose 140 H 181 H POC Glucose POC WB Ioniz Calcium Alkaline Phosphatase 131 H 144 H C-Reactive Protein 8.70 H 9.50 H 08/28/21 08/28/21 08/28/21 20:10 18:50 17:39 MPV Immature Gran % (Auto) Lymph % (Auto) Lymph # (Auto) [place] # (Auto) Seg Neutrophils % Lymphocytes % Immature Gran # Reactive Lymphocytes D-Dimer POC VBG pH 7.45 H POC VBG pCO2 at Temp 40.2 L POC VBG Base Excess 4.0 H* Carbon Dioxide Glucose POC Glucose 108 H POC WB Ioniz Calcium 1.12 L Alkaline Phosphatase C-Reactive Protein 4.90 H 08/28/21 08/28/21 08/28/21 17:30 17:30 17:30 MPV Immature Gran % (Auto) 0.8 H Lymph % (Auto) 11.2 L Lymph # (Auto) 1.17 L [place] # (Auto) 1.06 H Seg Neutrophils % Lymphocytes % Immature Gran # 0.08 H Reactive Lymphocytes D-Dimer 0.55 H POC VBG pH POC VBG pCO2 at Temp POC VBG Base Excess Carbon Dioxide Glucose POC Glucose POC WB Ioniz Calcium Alkaline Phosphatase 163 H C-Reactive Protein Meds: Medications Acetaminophen (Acetaminophen 325 Mg Tablet) 650 mg PO Q6HP PRN; Protocol PRN Reason: Per Pain Protocol/Fever > 101 Albuterol/Ipratropium (Ipratropium/Albuterol 3 Ml Ampul.Neb) 3 ml NEB Q4HP PRN PRN Reason: Shortness Of Breath Allopurinol (Allopurinol 300 Mg Tablet) 300 mg PO QDAY [facility] Last Admin: 08/29/21 10:17 Dose: 300 mg Amitriptyline HCl (Amitriptyline 25 Mg Tablet) 150 mg PO HS [facility] Last Admin: 08/29/21 21:28 Dose: 150 mg Aspirin (Aspirin 81 Mg Tab.Chew) 81 mg PO DAILY [facility] Last Admin: 08/29/21 10:16 Dose: 81 mg Carvedilol (Carvedilol 12.5 Mg Tablet) 12.5 mg PO BIDCC [facility] Last Admin: 08/30/21 07:40 Dose: 12.5 mg Dexamethasone (Dexamethasone 4 Mg Tablet) 6 mg PO DAILY [facility] Last Admin: 08/29/21 10:17 Dose: 6 mg Dextrose (Dextrose 50% 50 Ml Vial) 0 ml IV UD PRN PRN Reason: Per Sliding Scale Diagnostic Test (Pha) (Accu-Chek 1 Each Strip) 1 each FS ACHS [facility] Last Admin: 08/30/21 07:39 Dose: 1 each Docusate Sodium (Docusate Sodium 100 Mg Capsule) 100 mg PO BID [facility] Last Admin: 08/29/21 21:26 Dose: 100 mg Enoxaparin Sodium (Enoxaparin 40 Mg/0.4 Ml Syringe) 60 mg SQ BID [facility] Last Admin: 08/29/21 21:25 Dose: 60 mg Famotidine (Famotidine 20 Mg Tablet) 20 mg PO BID [facility] Last Admin: 08/29/21 21:27 Dose: 20 mg Furosemide (Furosemide 80 Mg Tablet) 40 mg PO QDAY [facility] Gabapentin (Gabapentin 300 Mg Capsule) 1,200 mg PO BID [facility] Last Admin: 08/29/21 21:24 Dose: 1,200 mg Glipizide (Glipizide 5 Mg Tab.Xl.24h) 10 mg PO QAMAC [facility] Last Admin: 08/30/21 07:39 Dose: 10 mg Glucose (Dextrose 31 Gm Oral.Susp) 15 gm PO PRN PRN PRN Reason: Hypoglycemia Ceftriaxone Sodium 2 gm/ (Dextrose) 50 mls @ 100 mls/hr IV Q24H [facility]; Protocol Last Infusion: 08/29/21 15:17 Dose: Infused Azithromycin 500 mg/ Dextrose 250 mls @ 250 mls/hr IV Q24H [facility]; Protocol Stop: 08/30/21 22:31 Last Infusion: 08/29/21 18:20 Dose: Infused Potassium Chloride 40 meq/ (Dextrose) 520 mls @ 130 mls/hr IV UD PRN PRN Reason: Potassium < 3 Magnesium Sulfate (Magnesium Sulfate) 2 gm in 50 mls @ 50 mls/hr IV UD PRN PRN Reason: Magnesium </= 1.6 REMDESIVIR 100 mg/ Sodium (Chloride) 250 mls @ 500 mls/hr IV DAILY [facility] Stop: 09/01/21 09:29 Last Infusion: 08/29/21 16:06 Dose: Infused Insulin Human Lispro (Insulin Lispro 1 Unit/0.01 Ml Unit) 0 unit SQ ACHS [facility]; Protocol Last Admin: 08/30/21 07:40 Dose: Not Given Labetalol HCl (Labetalol 5 Mg/Ml Ml) 0 mg IV Q2HP PRN PRN Reason: Hypertension Last Admin: 08/29/21 22:17 Dose: 10 mg Levothyroxine Sodium (Levothyroxine 100 Mcg Tablet) 100 mcg PO SuMoWeFr@0730 [facility] Last Admin: 08/29/21 10:48 Dose: 100 mcg Levothyroxine Sodium (Levothyroxine 100 Mcg Tablet) 200 mcg PO TuTh@0730 [facility] Liothyronine Sodium (Liothyronine 5 Mcg Tablet) 12.5 mcg PO MoWeFr@0900 [facility] Last Admin: 08/29/21 10:49 Dose: 12.5 mcg Liothyronine Sodium (Liothyronine 5 Mcg Tablet) 25 mcg PO SuTuThSa@0900 [facility] Metformin HCl (Metformin 500 Mg Tablet) 1,000 mg PO BIDCC [facility] Last Admin: 08/30/21 07:39 Dose: 1,000 mg Olmesartan (Olmesartan Medoxomil 20 Mg Tablet) 40 mg PO DAILY [facility] Last Admin: 08/29/21 10:16 Dose: 40 mg Ondansetron HCl (Ondansetron 4 Mg/2 Ml Vial) 4 mg IV Q4HP PRN PRN Reason: Nausea And Vomiting Magic Mouthwash [ Lidocaine 30 Mg- - Benadryl 60 Mg- Mylanta 60 Mg] Oral Solution 1 dose PO QID [facility] Last Admin: 08/29/21 22:10 Dose: Not Given Polyethylene Glycol (Polyethylene Glycol 3350 17 Gm Packet) 17 gm PO DAILYP PRN PRN Reason: Constipation Potassium Chloride (Potassium Chloride 20 Meq Tablet) 40 meq PO UD PRN PRN Reason: Potssium is 3-3.5 Potassium Chloride (Potassium Chloride 20 Meq Tablet) 40 meq PO UD PRN PRN Reason: Potassium < 3 Senna (Sennosides 1 Tablet) 2 tab PO DAILYP PRN PRN Reason: Constipation Simvastatin (Simvastatin 40 Mg Tablet) 40 mg PO QHS [facility] Last Admin: 08/29/21 21:32 Dose: 40 mg Sodium Chloride (0.9 % Sodium Chloride 10 Ml Syringe) 10 ml IV Q8 [facility] Last Admin: 08/30/21 05:20 Dose: 10 ml Tamsulosin HCl (Tamsulosin 0.4 Mg Capsule) 0.4 mg PO HS [facility] Last Admin: 08/29/21 22:07 Dose: 0.4 mg Zolpidem Tartrate (Zolpidem 5 Mg Tablet) 10 mg PO HSP PRN PRN Reason: Insomnia Last Admin: 08/29/21 21:25 Dose: 10 mg A/P Narrative A/P Narrative: A: *Acute hypoxic respiratory failure: 2/2 Pneumonia -CT chest with bibasilar infiltrate -trial on room air *COVID (+), ?PNA: *DM w/neuropathy: *Morbid Obesity: BMI 48 *YOEL with CPAP: *Hypothyroidism: *CKD: *Depression: *HTN/HLD: P: -Dex/Rem, s/p Actemra -O2 supp and wean as able -Abx, pending SC -nebs, RT, IS/Acapella -Proning/mobilization/OOB to chair -monitor inflammatory markers -cont home Norvasc/ARB/BB -cont lasix -SSI -PT/OT -ppx: lovenox / H2 DNR Time Spent With Patient Time: Total time spent is greater than 50% in coordination of care (as documented) at patient's floor/unit and/or counseling patient: QUALITY VTE Deep Vein Thrombosis/Pulmonary Embolism Present on Admission: No
[2021-08-30] MEDS: OLMESARTAN MEDOXOMIL 20 MG TABLET PO SCH (08:44)
[2021-08-30] MEDS: GABAPENTIN 300 MG CAPSULE PO SCH (08:45)
[2021-08-30] MEDS: ALLOPURINOL 300 MG TABLET PO SCH (08:45)
[2021-08-30] MEDS: DOCUSATE SODIUM 100 MG CAPSULE PO SCH (08:45)
[2021-08-30] MEDS: ASPIRIN 81 MG TAB.CHEW PO SCH (08:45)
[2021-08-30] MEDS: FAMOTIDINE 20 MG TABLET PO SCH (08:45)
[2021-08-30] MEDS: DEXAMETHASONE 4 MG TABLET PO SCH (08:45)
[2021-08-30] MEDS ORDERED: LIOTHYRONINE 5 MCG TABLET PO SCH (09:00)
[2021-08-30] MEDS ORDERED: ENOXAPARIN 60 MG/0.6 ML SYRINGE SQ SCH (09:00)
[2021-08-30] MEDS ORDERED: FUROSEMIDE 80 MG TABLET PO SCH (09:00)
[2021-08-30] MEDS: MAGIC MOUTHWASH PO SCH (09:17)
[2021-08-30] MEDS: [UNRECOGNIZED DRUG - OTHER] PO SCH (09:17)
[2021-08-30] MEDS: cefTRIAXone 2 GM in DEXTROSE 5% IN WATER 50 ML IV SCH (09:17)
[2021-08-30] MEDS: REMDESIVIR 100 MG in 0.9 % SODIUM CHLORIDE 250 ML IV SCH (09:56)
[2021-08-30] MEDS: AZITHROMYCIN 500 MG in DEXTROSE 5% IN WATER 250 ML IV SCH (10:35)
--- NOTE | 2021-08-30 10:53 | Discharge Summary ---
Discharge Provider Provider IMPORTANT FOLLOW-UP INFORMATION FOR PCP: Patient information: Note initiated : 08/30/21 at 10:52 am Service Date, if different from initiated Date: [] Patient: Paul Dawson 71 y/o M admitted on 08/28/21 for Shortness of breath. Chief Complaint: [] Date of admission: 08/28/21 21:11 Discharge date: 08/30/21 Primary care physician: Jane Benavidez Consults: 08/28/21 Consult to Physician [CONS] Stat Comment: Consulting Provider: Howard Beasley Reason For Exam: Physician to Consult COURSE Hospital Course Hospital course: History of present illness: Mr. Dawson is a 71 year old M Patient presents the ED with increasing shortness of breath and cough. Patient developed sore throat on Wednesday while he was in [place]. He came back and had increasing shortness of breath and dry cough. This morning it became worse and so he went to [facility] and got a COVID test that was positive and he was given a prescription for Paxil of it. Patient states his oxygen saturations were low, in the 80s and when he got home his said he did not look good so he went back to the ED. In the ER is 86% on room air. Patient complained of chills body aches and diarrhea and headaches. No chest pain. Patient is vaccinated against COVID as well as the booster. Influenza screen AMB were negative in the ED. CTA of the chest showing bilateral lower lobe infiltrates. 08/29 Patient has continued cough mostly dry. He says his shortness of breath is little better. Patient is on 4 L nasal cannula when I arrived in the room. CRP elevated 08/30 Patient doing well. Minimal cough. Shortness of breath much improved. Currently on room air. We will ambulate him and see how he does on room air. Patient doing well on room air and ambulating in her room on room air with good saturations. Patient recovered quicker than expected. A: *Acute hypoxic respiratory failure: 2/2 Pneumonia -CT chest with bibasilar infiltrate *COVID (+), ?PNA: *DM w/neuropathy: *Morbid Obesity: BMI 48 *YOEL with CPAP: *Hypothyroidism: *CKD: *Depression: *HTN/HLD: P: Discharge diagnosis: Pneumonia COVID infectionhypoxic respite failure Secondary discharge diagnosis: Diabetes morbid obesity obstructive sleep apnea hypothyroidism chronic kidney depression hypertension Time Spent with Patient Time attestation: Total time spent providing and/or coordinating discharge services: Time spent: Greater than 30 minutes EXAM Constitutional Vitals: Temp Pulse Resp BP Pulse Ox O2 Del Method O2 Flow Rate 97.8 F 91 H 19 158/99 98 0 08/30/21 08:01 08/30/21 10:05 08/30/21 10:05 08/30/21 08:01 08/30/21 10:05 08/30/21 02:15 08/30/21 10:05 Discharge Data Data Completed and Pending Labs on day of discharge: Labs from last 24 hours 08/30/21 05:08 Sodium 138 Potassium 4.1 Chloride 102 Carbon Dioxide 21 L Anion Gap 15.0 BUN 15 Creatinine 0.8 GFR Calculation 91 Glucose 140 H Uric Acid 4.5 Calcium 8.9 Phosphorus 2.8 Magnesium 2.4 Total Bilirubin 0.2 Direct Bilirubin < 0.2 GGT 33 AST 13 ALT 11 Alkaline Phosphatase 131 H Lactate Dehydrogenase 202 C-Reactive Protein 8.70 H Total Protein 6.7 Albumin 3.4 Globulin 3.3 Albumin/Globulin Ratio 1.0 Triglycerides 66 Discharge Plan Patient/Caregiver Discharge Instructions Activity: increase activity as tolerated Diet: Consistent Carbohydrate Prescriptions: New cefpodoxime 200 mg tablet 200 mg PO BID Qty: 10 0RF Rx Instructions: must administer with a meal/food Continued (DME) blood-glucose meter [Glucocard Vital] Kit See Rx Instructions .ROUTE .MEDSUPPLY Qty: 1 0RF Rx Instructions: TESTING bid metformin 500 mg tablet 1,000 mg PO BID Qty: 360 4RF Rx Instructions: increase to 4pills/day (DME) Diabetic shoes and inserts Qty: 1 0RF Rx Instructions: As directed blood sugar diagnostic [Glucocard Expression] Strip See Rx Instructions .ROUTE .COMPLEX Qty: 100 11RF Dose Instruction: USE TO test BLOOD SUGAR(S) TWICE DAILY Rx Instructions: USE TO test BLOOD SUGAR(S) TWICE DAILY glipizide 10 mg tablet extended release 24hr 10 mg PO QDAY Qty: 90 3RF zolpidem [Ambien] 10 mg tablet 10 mg PO QHS PRN (Reason: insomnia) Qty: 30 3RF Rx Instructions: pickup liothyronine 25 mcg tablet 25 mcg PO .COMPLEX Qty: 90 6RF Rx Instructions: 25 mcg PO 1/2 M, W & F, take 1 daily the other days of the week ; amlodipine 10 mg tablet 10 mg PO QDAY Qty: 90 3RF amitriptyline 50 mg tablet 50 mg tablet 150 mg PO QHS Qty: 270 2RF Rx Instructions: increased dose 01/11/19/ mouthwash See Rx Instructions .ROUTE .COMPLEX Qty: 240 0RF Rx Instructions: Mix 30mg Lidocaine, 60mg Benadryl, and 60mg Mylanta Swish 4 times daily and then swallow; Paxlovid (EUA) 300 mg (150 mg x 2)-100 mg tablet See Rx Instructions PO .COMPLEX Qty: 30 0RF Rx Instructions: take TWO 150 mg tablets of nirmatrelvir with ONE 100 mg tablet of ritonavir twice daily for 5 days ordered 08/28/21 do not take simvastatin and tamsulosin furosemide [Lasix] 80 mg tablet 40 mg PO QDAY Qty: 90 5RF Rx Instructions: 1/2 of 80 mg tablet simvastatin 40 mg tablet 40 mg PO QHS Qty: 90 3RF allopurinol 300 mg tablet 300 mg PO QDAY Qty: 90 4RF pioglitazone 15 mg tablet 15 mg PO QDAY Qty: 90 2RF levothyroxine [Levoxyl] 100 mcg tablet 100 mcg PO .COMPLEX Qty: 180 4RF Rx Instructions: 100 mcg PO 1 on M, W, F, Sun, 2 pills daily on wednesday and meloxicam 7.5 mg tablet 7.5 mg PO QDAY Qty: 90 0RF acetaminophen-codeine 300-30 mg tablet 1 tab PO Q6H Qty: 60 2RF Rx Instructions: last 30 days multivitamin Tablet 1 tab PO QDAY ascorbic acid (vitamin C) 500 mg Tablet 500 mg PO QDAY Excedrin Extra Strength 250-250-65 mg Tablet 3 tab PO Q6H PRN (Reason: Pain) cholecalciferol (vitamin D3) [Vitamin D3] 125 mcg (5,000 unit) Tablet 125 mcg PO QDAY Metamucil 3.4 gram/5.4 gram Powder 1 tbsp PO QDAY Rx Instructions: mix into at least 8 oz of water or juice before administering aspirin 81 mg Capsule 81 mg PO QDAY potassium chloride [Klor-Con M20] 20 mEq tablet,ER particles/crystals 40 meq PO QAM olmesartan 40 mg tablet 40 mg PO QAM carvedilol 12.5 mg tablet 12.5 mg PO BID Rx Instructions: must administer with a meal/food tamsulosin 0.4 mg capsule 0.4 mg PO QPM gabapentin 300 mg capsule 1,200 mg PO BID albuterol sulfate 90 mcg/actuation Hfa Aerosol Inhaler 2 puff INHALATION Q6H PRN (Reason: Shortness Of Breath Or Wheezing) Follow Up Plan Follow up with: Jane Benavidez ARNP [Primary Care Provider] - Patient Disposition: Home, Self-Care Prognosis: Fair Overall status at discharge: patient is progressing back to baseline Discharge Orders: Discharge Order (Routine); Ordered 08/30/21 Ordered By: Howard Beasley [facility] Deep Vein Thrombosis/Pulmonary Embolism Present on Admission: No
[2021-09-02] MEDS ORDERED: LEVOTHYROXINE 100 MCG TABLET PO SCH (07:30)
== END 2021-08-30 12:42 | disposition home or self-care (01) | DRG 177 ==
LOC: ED 16:56 → ICU 21:11
PROVIDERS: ADMIT Internal Medicine; ATTEND Internal Medicine

== ENCOUNTER 2023-11-08 09:17 | Inpatient (IN) ==
[2023-10-28 15:23] LABS: Basophils # (Auto) 0.02 K/mcL (0.00-0.30); Basophils % (Auto) 0.3 % (0.0-2.0); Eosinophils # (Auto) 0.37 K/mcL (0.00-0.70); Hematocrit 41.8 % (40.1-51.0); Hemoglobin 13.9 g/dL (13.7-17.5); Mean Cell Volume 95.2 fL (80.0-100.0); Mean Corpuscular HGB Conc 33.3 g/dL (31.0-36.0); Mean Platelet Volume 10.8 fL (8.8-12.5); Monocytes # (Auto) 0.58 K/mcL (0.10-0.90); Monocytes % (Auto) 7.8 % (1.0-12.0); Neutrophils % (Auto) 59.5 % (38.0-78.0); Platelet Count 244 K/mcL (140-440); RBC 4.39 M/mcL (4.63-6.08); Red Cell Distribution Width 12.9 % (11.5-14.5); WBC 7.4 K/mcL (4.5-11.0)
[2023-10-28 15:38] LABS: Prothrombin Time 13.9 sec (11.9-14.5)
[2023-10-28 15:43] LABS: ALT/SGPT 11 U/L (<40); AST/SGOT 16 U/L (<40); Albumin 4.2 gm/dL (3.2-5.2); Albumin/Globulin Ratio 1.4 (1.0-2.3); Alkaline Phosphatase 115 U/L (39-117); Bilirubin,Total 0.3 mg/dL (0.1-1.0); Blood Urea Nitrogen 13 mg/dL (8-23); Calcium 9.8 mg/dL (8.6-10.4); Carbon Dioxide 28 mmol/L (22-30); Chloride 103 mmol/L (96-108); Globulin 2.9 gm/dL (2.2-3.7); Glomerular Filtration Rate 95; Glucose 95 mg/dL (70-105); Potassium 4.1 mmol/L (3.3-5.1); Sodium 140 mmol/L (133-145)
[2023-10-28 15:57] LABS: Appearance,Urine Clear (Clear); Bilirubin,Urine Negative (Negative); Color,Urine Yellow; Glucose,Urine (UA) Negative (Negative); Ketones,Urine Negative (Negative); Leukocyte Esterase,Urine Small /uL (Negative); Nitrate,Urine Negative (Negative); Protein,Urine Negative (Negative); Specific Gravity,Urine 1.015 (1.000-1.035); Urine Blood Negative ery/mcL (Negative); Urine RBC 0 /hpf (0-3); Urine Squamous Epithelial Cell 0 /hpf (0-4); Urine WBC 2 /hpf (0-4); Urobilinogen,Urine Normal
[2023-10-28 19:43] LABS: Estimated Average Glucose(eAG) 120 mg/dL; Hemoglobin A1C 5.8 % Hgb (4.0-6.0)
[2023-11-08] MEDS ORDERED: IPRATROPIUM/ALBUTEROL 3 ML AMPUL.NEB NEB PRN ×3 (09:30→16:17)
[2023-11-08] MEDS ORDERED: SCOPOLAMINE 1 PATCH PATCH TOPICAL PRN ×2 (09:30)
[2023-11-08] MEDS: ACETAMINOPHEN 500 MG TABLET PO SCH (10:20)
[2023-11-08] MEDS: GABAPENTIN 400 MG CAPSULE PO SCH (10:20)
[2023-11-08] MEDS: oxyCODONE 10 MG TAB.ER.12H PO SCH (10:21)
[2023-11-08] MEDS: CELECOXIB 200 MG CAPSULE PO SCH (10:21)
[2023-11-08] MEDS ORDERED: KETAMINE 50 MG/ML Syringe IV ONE (11:41)
[2023-11-08] MEDS ORDERED: TRANEXAMIC ACID 1,000 MG/10 ML VIAL ONE (11:42)
[2023-11-08] MEDS ORDERED: LIDOCAINE 2% PF 5 ML VIAL ONE (11:42)
[2023-11-08] MEDS ORDERED: GLYCOPYRROLATE 0.2 MG/ML VIAL IV ONE (11:42)
[2023-11-08] MEDS ORDERED: PROPOFOL 200 MG/20 ML VIAL IV ONE (11:42)
[2023-11-08] MEDS ORDERED: ONDANSETRON 4 MG/2 ML VIAL ONE (11:42)
[2023-11-08] MEDS ORDERED: DEXAMETHASONE 10 MG/ML VIAL ONE (11:42)
[2023-11-08] MEDS ORDERED: PHENYLephrine 1 MG/10 ML SYRINGE (ANEST) ONE (11:42)
[2023-11-08] MEDS ORDERED: MAGNESIUM SULFATE 2 GM/50 ML BAG IV ONE (12:48)
[2023-11-08] MEDS: ceFAZolin 3 GM in DEXTROSE 5% IN WATER 50 ML IV SCH (14:15)
[2023-11-08] MEDS ORDERED: ROPIVACAINE HCL/PF 30 ML VIAL IJ ONE (15:00)
[2023-11-08] MEDS ORDERED: VASOPRESSIN 20 UNIT/ML VIAL ONE (15:01)
[2023-11-08] MEDS ORDERED: 0.9 % SODIUM CHLORIDE 100 ML IV ONE (15:02)
[2023-11-08] MEDS: 0.9 % SODIUM CHLORIDE 9 ML, KETOROLAC 30 MG, ROPIVACAINE HCL/PF 49.5 ML, EPINEPHrine 0.... IJ SCH (16:11)
[2023-11-08] MEDS ORDERED: BENZOCAINE/MENTHOL 1 LOZENGE PO PRN (16:17)
[2023-11-08] MEDS ORDERED: fentaNYL 100 MCG/2 ML VIAL IV PRN (16:17)
[2023-11-08] MEDS ORDERED: LACTATED RINGERS 250 ML IV PRN (16:17)
[2023-11-08] MEDS ORDERED: ONDANSETRON 4 MG/2 ML VIAL IV PRN (16:17)
[2023-11-08] MEDS ORDERED: NALOXONE HCL 0.4 MG/ML VIAL IV PRN (16:17)
[2023-11-08] MEDS ORDERED: HYDROmorphone 1 MG/ML SYRINGE IV PRN (16:18)
[2023-11-08] MEDS ORDERED: BISACODYL 10 MG SUPP.RECT PR PRN (16:18)
[2023-11-08] MEDS ORDERED: MAGNESIUM HYDROXIDE 30 ML ORAL.SUSP PO PRN (16:18)
[2023-11-08] MEDS ORDERED: FLEETS ADULT 1 DOSE ENEMA PR PRN (16:18)
[2023-11-08] MEDS ORDERED: POLYETHYLENE GLYCOL 3350 17 GM PACKET PO PRN (16:18)
[2023-11-08] MEDS ORDERED: ACETAMINOPHEN 325 MG TABLET PO PRN (16:18)
[2023-11-08] MEDS ORDERED: tiZANidine 4 MG TABLET PO PRN (16:21)
[2023-11-08] MEDS ORDERED: METHOCARBAMOL 750 MG TABLET PO PRN (16:21)
[2023-11-08] MEDS ORDERED: LIOTHYRONINE 25 MCG PO SCH (16:30)
[2023-11-08] MEDS ORDERED: [UNRECOGNIZED DRUG - OTHER] SUB-Q SCH (16:30)
[2023-11-08] MEDS ORDERED: TIRZEPATIDE 10 MG/0.5 ML SUB-Q SCH (16:30)
[2023-11-08] MEDS ORDERED: ALBUTEROL SULFATE 60 PUFF INHALER INH PRN (16:52)
[2023-11-08] MEDS: HYDROmorphone 0.5 MG/0.5 ML SYRINGE IV PRN (17:05)
[2023-11-08] MEDS: METHOCARBAMOL 1,000 MG/10 ML VIAL IV PRN (17:07)
[2023-11-08] MEDS: TRANEXAMIC ACID 1,000 MG/10 ML VIAL IV ONE (17:07)
[2023-11-08] MEDS: 0.45 % SODIUM CHLORIDE 1,000 ML IV SCH (18:15)
[2023-11-08] MEDS: LACTATED RINGERS 1,000 ML IV SCH (18:19)
[2023-11-08] MEDS: CARVEDILOL 6.25 MG TABLET PO SCH (18:31)
[2023-11-08] MEDS: KETOROLAC 15 MG/ML VIAL IV SCH (18:31)
[2023-11-08] MEDS: oxyCODONE/APAP 5/325MG TABLET PO PRN (19:22)
[2023-11-08] MEDS: GABAPENTIN 300 MG CAPSULE PO SCH (21:24)
[2023-11-08] MEDS: metFORMIN 500 MG TABLET PO SCH (21:25)
[2023-11-08] MEDS: SENNOSIDES 1 TABLET PO SCH (21:26)
[2023-11-08] MEDS: ATORVASTATIN 40 MG TABLET PO SCH (21:26)
[2023-11-08] MEDS: ASPIRIN 81 MG TAB.CHEW PO SCH (21:26)
[2023-11-08] MEDS: amLODIPine 5 MG TABLET PO SCH (21:27)
[2023-11-08] MEDS: TAMSULOSIN 0.4 MG CAPSULE PO SCH (21:27)
[2023-11-08] MEDS: AMITRIPTYLINE 25 MG TABLET PO SCH (21:28)
[2023-11-08] MEDS: 0.9 % SODIUM CHLORIDE 10 ML SYRINGE IV SCH (21:28)
[2023-11-08] MEDS: ceFAZolin 1 GM VIAL IV SCH (21:39)
[2023-11-09] MEDS: LEVOTHYROXINE 100 MCG TABLET PO SCH (08:00)
[2023-11-09] MEDS: LIOTHYRONINE 5 MCG TABLET PO SCH (08:02)
[2023-11-09] MEDS: POTASSIUM CHLORIDE 20 MEQ TABLET PO SCH (08:53)
[2023-11-09] MEDS: MELOXICAM 7.5 MG TABLET PO SCH (08:53)
[2023-11-09] MEDS: FUROSEMIDE 40 MG TABLET PO SCH (08:54)
[2023-11-09] MEDS: VITAMIN D3 125 MCG TABLET PO SCH (08:54)
[2023-11-09] MEDS: OMEPRAZOLE 20 MG CAPSULE PO SCH (08:54)
[2023-11-09] MEDS: PIOGLITAZONE 15 MG TABLET PO SCH (08:54)
[2023-11-09] MEDS: OLMESARTAN MEDOXOMIL 20 MG TABLET PO SCH (08:54)
[2023-11-09] MEDS: ASCORBIC ACID 500 MG TABLET PO SCH (08:54)
[2023-11-09] MEDS: ALLOPURINOL 300 MG TABLET PO SCH (08:54)
[2023-11-09] MEDS ORDERED: ASPIRIN 81 MG PO SCH (09:00)
[2023-11-09] MEDS: MULTIVIT,THER IRON,CA,FA & MIN 1 TABLET PO SCH (09:58)
[2023-11-10] MEDS ORDERED: LIOTHYRONINE 5 MCG TABLET PO SCH (07:30)
[2023-11-10] MEDS ORDERED: LEVOTHYROXINE 100 MCG TABLET PO SCH (07:30)
== END 2023-11-09 10:40 | disposition home or self-care (01) | DRG 467 ==
LOC: MEDSUR 09:17 → EDSTATUS 14:30
PROVIDERS: ADMIT Orthopaedic Surgery; ATTEND Orthopaedic Surgery